=== PATIENT | male | born 1935 | race Caucasian/White ===

== ENCOUNTER 2017-04-24 07:01 | Day surgery (SDC) | payer MEDICARE, BC ==
[~2017-04-24] VITALS: Ht 180.3 cm; Wt 69.0 kg
[2017-04-24] MEDS ORDERED: SODIUM CHLORIDE 0.9% 1,000 ML IV SCH (08:24)
[2017-04-24 08:25] VITALS: BP 163/77
[2017-04-24] MEDS ORDERED: MULT-6 PO (08:29)
[2017-04-24] MEDS ORDERED: AMLO2.5T PO (08:29)
[2017-04-24] MEDS ORDERED: OMEG1CAP62 PO (08:29)
[2017-04-24] MEDS ORDERED: METO25TA35 PO (08:29)
[2017-04-24] MEDS ORDERED: GLIP10TA13 PO (08:29)
[2017-04-24] MEDS ORDERED: FERR324T5 PO (08:29)
[2017-04-24] MEDS ORDERED: ASPI-496 PO (08:29)
[2017-04-24] MEDS ORDERED: SIMV20TA3 PO (08:29)
[2017-04-24] MEDS ORDERED: SITA50TA PO (08:29)
[2017-04-24] MEDS ORDERED: LOSA50TA6 PO (08:29)
[2017-04-24] MEDS ORDERED: GEMF600T3 PO (08:29)
[2017-04-24] MEDS ORDERED: FENTANYL PF 100 MCG/2ML ONE (10:07)
[2017-04-24] MEDS ORDERED: MIDAZOLAM 1 MG/ML, 5ML ONE (10:07)
[2017-04-24] MEDS ORDERED: FLUMAZENIL 0.1 MG/1 ML, 5ML ONE (10:07)
[2017-04-24] MEDS ORDERED: NALOXONE 1 MG/ML, 2ML ONE (10:07)
== END 2017-04-24 13:35 | disposition home or self-care (01) ==
LOC: OUT 07:01
PROVIDERS: ATTEND Internal Medicine Nephrology
DX: E11.22 Type 2 diabetes mellitus with diabetic chronic kidney disease (principal); I12.0 Hypertensive chronic kidney disease with stage 5 chronic kidney disease or end stage renal disease; N18.5 Chronic kidney disease, stage 5; E78.5 Hyperlipidemia, unspecified; E87.2 Acidosis; D63.1 Anemia in chronic kidney disease; E11.40 Type 2 diabetes mellitus with diabetic neuropathy, unspecified; Z88.7 Allergy status to serum and vaccine; Z88.8 Allergy status to other drugs, medicaments and biological substances; Z85.46 Personal history of malignant neoplasm of prostate; Z85.51 Personal history of malignant neoplasm of bladder; Z90.79 Acquired absence of other genital organ(s); Z98.890 Other specified postprocedural states
CPT/HCPCS: 36415; 50200; 77012; 85610; 88300; 99156; 99157; J2250; J3010; J7030; J2310